=== PATIENT | male | born 1970 ===

== ENCOUNTER 2025-02-07 23:19 | Emergency (ER) | payer OTHER ==
[~2025-02-07] VITALS: Ht 177.8 cm; Wt 97.5 kg
== END 2025-02-08 00:55 | disposition other institution (70) ==
LOC: ER 23:19
DX: S01.81XA Laceration without foreign body of other part of head, initial encounter (principal); F17.220 Nicotine dependence, chewing tobacco, uncomplicated; W01.0XXA Fall on same level from slipping, tripping and stumbling without subsequent striking against object, initial encounter
CPT/HCPCS: 12013; 70450; 99284-25